=== PATIENT | female | born 1960 | race Caucasian/White ===

== ENCOUNTER 2017-08-16 06:45 | Emergency (ER) | payer BC ==
[~2017-08-16] VITALS: Ht 162.6 cm; Wt 76.0 kg
[2017-08-16] MEDS ORDERED: SODIUM CHLORIDE 0.9% 1,000 ML IV ONE (10:21)
[2017-08-16 10:52] LABS: CLARITY URINE CLEAR (CLEAR); COLOR URINE YELLOW (YELLOW); KETONES URINE NEGATIVE (NEGATIVE); LEUKOCYTE ESTERASE URINE NEGATIVE (NEGATIVE); NITRITE URINE NEGATIVE (NEGATIVE); OCCULT BLOOD URINE NEGATIVE (NEGATIVE); PROTEIN URINE NEGATIVE (NEGATIVE); SPECIFIC GRAVITY URINE 1.013 (1.005-1.030); UROBILINOGEN URINE 0.2 E.U./dL (0.2-1.0)
[2017-08-16 10:52] LABS: BASOPHILS % 0.7 % (0.0-2.0); EOSINOPHILS % 1.6 % (0.0-5.0); HEMATOCRIT. 40.3 % (36.0-48.0); HEMOGLOBIN. 13.7 g/dL (12.0-16.0); LYMPHOCYTES % 43.4 % (20.0-50.0); MEAN CORPUSCULAR HEMOGLOBIN 30.9 pg (28.0-32.0); MEAN CORPUSCULAR VOLUME 90.6 fL (81.0-99.0); MEAN PLATELET VOLUME 8.9 fl (7.4-10.4); MONOCYTES % 8.9 % (2.0-8.0); NEUTROPHILS % 45.4 % (40.0-76.0); PLATELET 231 x1000/uL (130-400); RED BLOOD CELL COUNT 4.45 mill/uL (4.2-5.4)
[2017-08-16 10:59] LABS: PROTHROMBIN TIME 10.8 sec (9.4-11.6)
[2017-08-16 11:07] LABS: CHLORIDE 106 mEq/L (98-107)
[2017-08-16] MEDS ORDERED: MAGNESIUM/ALUMINUM HYDROXIDE/SIMETHICONE 30ML UDC PO STA (13:56)
[2017-08-16] MEDS ORDERED: DICYCLOMINE 10 MG/5 ML ORAL SYR PO STA (13:56)
[2017-08-16] MEDS ORDERED: VISCOUS LIDOCAINE 2% 15 ML UDC PO STA (13:56)
[2017-08-16 14:58] VITALS: BP 142/91
== END 2017-08-16 14:59 | disposition home or self-care (01) ==
LOC: ER 06:45
DX: K21.9 Gastro-esophageal reflux disease without esophagitis (principal); E78.00 Pure hypercholesterolemia, unspecified; Z88.2 Allergy status to sulfonamides; Z98.890 Other specified postprocedural states
CPT/HCPCS: 36415; 76705; 80053; 81003; 83690; 85025; 85610; 96360; 99285; J7030